=== PATIENT | female | born 1990 | race Caucasian/White ===

== ENCOUNTER 2024-11-28 03:10 | Emergency (ER) | payer MEDICAID, SELFPAY ==
[2024-11-28 03:18] VITALS: BP 137/90; PULSE 91; RESP 18; TEMP 36.6; O2SAT 96; BMI 18.4
[2024-11-28 03:36] LABS: MANUAL DIFF FLAG NO
[2024-11-28 03:37] LABS: Hematocrit 43.0 % (37.0-47.0); Hemoglobin 14.6 g/dl (12.0-16.0); Imm Gran Abs Auto 0.02 X10*3/uL (0.00-0.03); Imm Gran Pct Auto 0.2 % (0.0-0.4); Lymphocytes Absolute Auto 3.1 X10*3/uL (1.2-4.9); Mean Corpuscular HGB Conc 34.0 g/dl (31.0-35.0); Mean Corpuscular Hemoglobin 32.0 pg (27.0-33.0); Mean Corpuscular Volume 94.3 fL (80.0-98.0); NRBC Abs Auto 0.000 X10*3/uL (0.0-0.012); NRBC Pct Auto 0.0 /100WBC (0.0-0.2); Platelet Count 251 X10*3/uL (160-400); Red Blood Count 4.56 X10*6/uL (4.20-5.50); White Blood Count 8.7 X10*3/uL (4.8-10.8)
[2024-11-28 03:38] LABS: Appearance Urine Clear; Glucose Urine UA Negative (Negative); PH 6.5 (5.0-9.0); Specific Gravity - Urine 1.015 (1.005-1.025); UMIC TRIGGER UACC YES
[2024-11-28 03:40] LABS: UACC Culture Trigger YES
[2024-11-28 03:58] LABS: Alanine Aminotransferase 14 U/L (0-31); Albumin Level 4.4 g/dL (3.5-5.0); Alkaline Phosphatase 58 U/L (39-117); Anion Gap 15 (12-20); Aspartate Amino Transferase 27 U/L (5-31); Blood Urea Nitrogen 7 mg/dL (9-16); Calcium 9.0 mg/dL (8.4-10.2); Carbon Dioxide 20 mmol/L (22-29); Chloride 114 mmol/L (96-108); Creatinine Clr Calc Pharmacy 103.6; Estimated Glomerular Filt Rate > 60; Potassium 4.0 mmol/L (3.3-5.1); Sodium 145 mmol/L (135-145); Total Protein 7.3 g/dL (6.5-8.0)
--- NOTE | 2024-11-28 04:27 | ED.MEDCLEAR ---
HPI - Medical Clearance General Chief complaint: Medical Clearance Stated complaint: detox Time Seen by Provider: 11/28/24 04:20 Source: patient Limitations: no limitations History of Present Illness ED Provider: Abbey Castro PA-C HPI Narrative: 34-year-old female with a history of substance use presents requesting medical clearance. Patient states she has a detox bed at [facility], she requires medical clearance here in the ER. Related Information Allergies Allergy/AdvReac Type Severity Reaction Status Date / Time codeine Allergy Hives Verified 11/28/24 03:20 shellfish derived (shellfish) Allergy Anaphylaxis Verified 11/28/24 03:20 vancomycin Allergy Hives Verified 11/28/24 03:20 clindamycin AdvReac Diarrhea Verified 11/28/24 03:20 Review of Systems Review of Systems: Yes all other systems are reviewed and are negative Constitutional: Constitutional: Denies fatigue and Denies fever(s) Cardiovascular: Cardiovascular: Denies chest pain Gastrointestinal: Gastrointestinal: Denies abdominal pain Musculoskeletal: Musculoskeletal: Denies back pain Endocrine: Endocrine: Denies fatigue PMF Past Medical History Attestation statement: The following information was validated with the patient. Social History Social History Advance Directives: No Physical Exam Vital Signs: Vital Signs: Last Vital Signs Temp 97.8 F 11/28/24 04:46 Pulse 91 11/28/24 04:46 Resp 18 11/28/24 04:46 BP 137/90 H 11/28/24 04:46 Pulse Ox 96 11/28/24 04:46 O2 Del Method Room Air 11/28/24 04:46 BMI result Body Mass Index 18.4 Const: Other: Alert, appears older than stated age Orientation/consciousness: patient oriented x3 Resp: Effort & Inspection: normal respiratory effort Cardio: Other: Normal peripheral perfusion Skin: Other: Warm dry no rash Neuro: General: patient oriented x3, gait normal, no focal motor deficits and CN's II-XI intact bilaterally Psych: Other: Cooperative Medical Decision Making Medical Decision Making MDM Narrative: 34-year-old female with a history of substance use presents requesting medical clearance. Patient states she has a detox bed at [facility], she requires medical clearance here in the ER. Problem: Substance abuse History: Per patient I have considered the following differential diagnoses: SI, HI, decompensated psychiatric illness, drug/alcohol intoxication, medical clearance Plan: Patient is here for medical clearance, screening labs were obtained, she has a sober ride that we will be taken to her to detox once she is discharged from the ER. She is simply requires her discharge paperwork stating that she is medically cleared. I have independently reviewed the following tests: Labs: No leukocytosis, not anemic, urine not infected Lab Data 11/28/24 03:30 11/28/24 03:30 Labs: Lab Results 11/28/24 Range/Units 03:30 WBC 8.7 (4.8-10.8) X10*3/uL RBC 4.56 (4.20-5.50) X10*6/uL Hgb 14.6 (12.0-16.0) g/dl Hct 43.0 (37.0-47.0) % MCV 94.3 (80.0-98.0) fL MCH 32.0 (27.0-33.0) pg MCHC 34.0 (31.0-35.0) g/dl RDW 13.2 (11.0-16.0) % Plt Count 251 (160-400) X10*3/uL MPV 10.4 (9.4-12.3) fL Immature Gran % (Auto) 0.2 (0.0-0.4) % Neut % (Auto) 50.2 (45-73) % Lymph % (Auto) 36.0 (20-40) % Moody % (Auto) 10.5 (2-11) % Eos % (Auto) 2.4 (0-4) % Baso % (Auto) 0.7 (0-2) % Lymph # (Auto) 3.1 (1.2-4.9) X10*3/uL Moody # (Auto) 0.9 (0.1-1.2) X10*3/uL Eos # (Auto) 0.2 (0.0-0.4) X10*3/uL Baso # (Auto) 0.1 (0.0-0.2) X10*3/uL Abs Immat Gran (auto) 0.02 (0.00-0.03) X10*3/uL Absolute Neuts (auto) 4.3 (2.0-8.3) x10*3/uL Absolute Nucleated RBC 0.000 (0.0-0.012) X10*3/uL Nucleated RBC % (auto) 0.0 (0.0-0.2) /100WBC Sodium 145 (135-145) mmol/L Potassium 4.0 (3.3-5.1) mmol/L Chloride 114 H (96-108) mmol/L Carbon Dioxide 20 L (22-29) mmol/L Anion Gap 15 (12-20) BUN 7 L (9-16) mg/dL Creatinine 0.60 (0.5-1.4) mg/dL Estim Creat Clear Calc 103.6 Estimated GFR > 60 Random Glucose 67 (60-115) mg/dL Calcium 9.0 (8.4-10.2) mg/dL Total Bilirubin 0.1 (0.0-1.0) mg/dL AST 27 (5-31) U/L ALT 14 (0-31) U/L Alkaline Phosphatase 58 (39-117) U/L Total Protein 7.3 (6.5-8.0) g/dL Albumin 4.4 (3.5-5.0) g/dL Urine Color Yellow Urine Appearance Clear Urine pH 6.5 (5.0-9.0) Ur Specific Noble 1.015 (1.005-1.025) Urine Protein 30 (1+) H (Neg-Trace) mg/dL Urine Glucose (UA) Negative (Negative) mg/dL Urine Ketones Negative (Negative) mg/dL Urine Blood Negative (Negative) Urine Nitrite Negative (Negative) Ur Leukocyte Esterase Moderate (2+) H (Negative) Urine RBC 0-2 (0-2) /HPF Urine WBC 6-10 H (0-5) /HPF Ur Squamous Epith Cells 0-2 (0-2) /HPF Urine Bacteria None Seen (None Seen) Hyaline Casts 0-2 (0-2) /LPF Discharge Plan Discharge Clinical Impression: Encounter for medical screening examination Patient Disposition: Home, Self-Care Additional Instructions: There were no acute lab abnormalities, the patient's vitals are stable, she is appropriate to be transferred to the detox bed at [facility] Interventions: ED Discharge Assessment Last Done: 11/28/24 04:46 Discharge Date/Time: 11/28/24 04:47 Print Language: Italian
--- OUTSIDE RECORDS SUMMARY | 2024-11-28 04:39 | XMS_ITS | Clinical Summary ---
Author Organization [facility] Address [address] [employer] [address] [address] Phone Care Team Providers Care Fern Gatherer Name Role Phone Pcp, Unknown Primary Care Provider Unavailabl e Allergies Active Allergy Reactions Criticality Noted Date Comments Codeine Hives Low 02/12/2018 Vancomycin Hives Low 02/12/2018 Reaction was to IV form Medications lithium carbonate 300 mg tablet Take 900 mg by mouth nightly. Active gabapentin (NEURONTIN) 300 MG capsule Take 300 mg by mouth daily with dinner. Active gabapentin (NEURONTIN) 300 MG capsule Take 600 mg by mouth nightly. Active dextroamphetamine -amphetamine (ADDERALL) 15 mg Tab tablet Take 15 mg by mouth 2 (two) times a day. Active therapeutic multivitamin tablet Take 1 tablet by mouth daily. Active fluvoxaMINE (LUVOX) 100 MG tablet Take 100 mg by mouth 2 (two) times a day. Active cyclobenzaprine (FLEXERIL) 10 MG tabletIndications :Post viral syndrome Take 1 tablet (10 mg total) by mouth nightly at bedtime. 30 tablet 11 9 Active metaxalone (SKELAXIN) 800 MG tablet Take 800 mg by mouth 3 (three) times a day. Active nicotine (NICODERM CQ) 21 mg/[address] 1 patch onto the skin daily. 30 patch 5 9 Active Active Problems Problem Noted Date Diagnosed Date Attention deficit hyperactivity disorder (ADHD) 02/26/2019 Overview (02/26/2019): Follows with psych Mixed obsessional thoughts and acts 02/26/2019 Overview (02/26/2019): OCD- follows with psych Assessment & Plan (02/26/2019 2:08 PM EST): Is going to continue calling around for a new psychiatrist. Her diagnostic uncertainty and polypharmacy place her outside my scope of comfort for psychiatric prescription. 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 02/12/2018 Chronic fatigue 02/12/2018 Acne 02/12/2018 Family History Medical History Relation Comments No Known Problems Daughter Bipolar disorder Father Heart attack Father Peripheral Arterial Disease Father with claudication Premature CHD Father Hypertension Mother Migraines Mother No Known Problems Sister Allergies Son Other Son petechiae- no kn own cause Breast cancer Neg Hx Colon cancer Neg Hx Hypothyroidism Neg Hx Pancreatic cancer Neg Hx Relation Status Comments Daughter Alive Father Alive Mother Alive Sister Alive Son Alive Social History Tobacco Use Types Packs/Day Years Used Date Smoking Tobacco: Former Cigarettes 1 10 0 08/10/2001 - 2011 Smokeless Tobacco: Current Tobacco Cessation:Ready to Q uit: No; Counseling Given: Yes Comments:Using e-cigarettes Alcohol Use Standard Drinks/Week Comments Yes 0 (1 standard drink = 0.6 oz pur e alcohol) Education Answer Date Recorded Are you interested in more education? Not on lisa e 07/07/2022 Are you concerned about learning? Not on file 07/07/2022 No 07/07/2022 No 07/07/2022 Digital Access Answer Date Recorded No 08/07/2022 No 08/07/2022 No 08/07/2022 Reliable internet access at home? Not on file 08/07/2022 Device with a working camera? Not on file Comments No Sex and Gender Information Value Date Recorded Sex Assigned at Female 02/26/2019 11:26 AM EST Legal Sex Female 9:04 PM EDT Gender Identity Female 02/26/2019 11:26 AM EST Sexual Orientation Straight 02/26/2019 11 :26 AM EST Last Filed Vital Signs Vital Sign Reading Time Taken Comments Blood Pressure 122/64 02/26/2019 11:01 AM EST Pulse 102 02/26/2019 11:01 AM EST Temperature 36.8 C (98.3 F) 02/26/2019 11:01 AM EST Respiratory Rate - - Oxygen Saturation 99% 02/26/2019 11: 01 AM EST Inhaled Oxygen Concentration - - Weight 49.8 kg (109 lb 12.8 oz) 019 11:01 AM EST Height 165.3 cm (5' 5.06 ) 02/26/2019 1 1:01 AM EST Body Mass Index 18.24 02/26/2019 11:01 AM EST Plan of Treatment Health Maintenance Due Date Last Done Comments CREATININE LEVEL 1989 LITHIUM LEVEL 1989 TSH LEVEL 1989 SMOKING Hx and SMOKELESS TOBACCO SCREENING 2002 HEPATITIS C SCREENING 07/12/2007 HIV ONE-TIME SCREENING (18-6 5 YEARS) 07/12/2007 PAP SMEAR 2010 DEPRESSION SCREENING 02/25/2020 02/24/2019 INFLUENZA VACCINE (#1) 2024 COVID-19 VACCINE (2023-2 5 season) 2024 Adult Td,Tdap Booster 07/15/2031 07/14/2021 , 04/04/2016, 11/10/2000 HIB VACCINES Completed 10/11/1990, 04/23/1990, 02/08/1990 HEPATITIS A VACCINES Aged Out No long er eligible based on patient's age to complete this topic MENINGOCOCCAL VACCINES (ACWY) Aged Out No longer eligible based on patient's age to complete this topic MENINGOCOCCAL VACCINES (B) Aged Out N o longer eligible based on patient's age to complete this topic PNEUMOCOCCAL VACCINES (0-49 years) Aged Out No longer eligible b ased on patient's age to complete this topic Medical Devices Not on file Insurance [place] [address] [place] [address] PPO EPO [facility] [place]PO [place] [address] [place] [address] [place] [place] [address] PPO EPO PPO EPO PPO EPO PPO EPO PPO EPO Care Teams Fern Gatherer Relationship Specialty Start Date End Date Pcp, Unknown PCP - General 07/17/22 Additional Source Comments The information contained in this document represents components of the legal health record. It is not the complete legal health record.[facility]
--- OUTSIDE RECORDS SUMMARY | 2024-11-28 04:39 | XMS_ITS | Clinical Summary ---
Author Organization [facility] Address [address] [place] [address] Care Team Providers Care Fagoting Machine Operator Name Role Phone Kathy Rosa Maria LAMAR-Jac Primary Care Provider [phone] Source Comments PLEASE NOTE, if this patient is a minor, it may be UNLAWFUL to discuss sensitive information that is contained in these records (such as FAMILY PLANNING, MENTAL HEALTH or SUBSTANCE ABUSE) with the minor patient's parent or other person without the patient's specific authorization.[facility] Allergies Active Allergy Reactions Criticality Noted Date Comments Codeine 08/18/2022 Shellfish Containing Products 2022 Vancomycin 08/18/2022 Medications fluoride, sodium, 1.1 % creaIndications: Caries of dentin Place in mouth once daily 51 g 3 08/31/19 23 Active dicyclomine (BENTYL) 20 mg tabletIndication s:Uses control Take 1 Tablet by mouth 3 (three) times daily as needed for other reason (pain) 30 Tablet 11/22/19 23 Active ibuprofen 600 mg tabletIndication s:Mild intermittent asthma without complication ([facility]) Take 1 Tablet by mouth 3 (three) times daily as needed for pain 28 Tablet 11/22/19 23 Active pyridoxine, vitamin B6, 100 mg tabletIndication s:PMDD (premenstrual dysphoric disorder) Take 1 Tablet by mouth once daily for 90 days 30 Tablet 2 03/23/19 24 Active calcium (OS-VINCENT) 500 mg calcium (1,250 mg) tabletIndication s:PMDD (premenstrual dysphoric disorder) Take 1 Tablet by mouth once daily for 90 days 30 Tablet 2 03/23/19 24 Active hydrOXYzine HCL (ATARAX) 25 mg tabletIndication s:Attention deficit hyperactivity disorder (ADHD), unspecified ADHD type,Obsessive-c ompulsive disorder, unspecified type Take 1 Tablet by mouth once daily as needed for anxiety 90 Tablet 12/31/19 24 Active albuterol HFA 90 mcg/actuation inhalerIndicatio ns:Mild intermittent asthma without complication (HHS-HCC) Inhale 2 Puffs into the lungs every 4 (four) hours as needed for shortness of breath 18 g 1 02/19/20 24 Active budesonide-formo teroL (SYMBICORT) 80-4.5 mcg/actuation inhalerIndicatio ns:Mild persistent asthma with acute exacerbation (HHS-HCC) Inhale 2 Puffs into the lungs 2 (two) times daily 30.6 g 02/19/20 24 Active norethindrone, contraceptive, (INCASSIA) 0.35 mg tabletIndication s:Uses control Take 1 Tablet by mouth once daily 84 Tablet 2 04/22/19 25 Active gabapentin (NEURONTIN) 600 mg tabletIndication s:PMDD (premenstrual dysphoric disorder),Obsess tacho-compulsive disorder, unspecified type Take 2 Tablets by mouth nightly at bedtime for 180 days 60 Tablet 5 05/20/19 25 Active ARIPiprazole (ABILIFY) 2 mg tabletIndication s:PMDD (premenstrual dysphoric disorder) Take 1 Tablet by mouth once daily for 90 days. 30 Tablet 2 08/07/19 25 Active fluvoxaMINE (LUVOX) 100 mg tabletIndication s:Obsessive-comp ulsive disorder, unspecified type Take 1 Tablet by mouth 3 (three) times daily for 90 days. 90 Tablet 2 08/07/19 25 Active propranoloL (INDERAL) 10 mg tabletIndication s:PMDD (premenstrual dysphoric disorder) Take 1 Tablet by mouth 3 (three) times daily for 90 days. 90 Tablet 2 08/07/19 25 Active lisdexamfetamine (VYVANSE) 50 mg capsuleIndicatio ns:Attention deficit hyperactivity disorder (ADHD), unspecified ADHD type Take 1 Capsule by mouth every morning for 30 days. Max Daily Amount: 50 mg 30 Capsule 11/05/19 25 025 Active nicotine polacrilex (COMMIT) 4 mg lozengeIndicatio ns:Tobacco use USE ONE BY MOUTH EVERY 2 HOURS NEEDED FOR SMOKING CESSATION. 432 Lozenge 1 11/12/19 25 Active lisdexamfetamine 10 mg capIndications:A ttention deficit hyperactivity disorder (ADHD), unspecified ADHD type Take 1 Capsule by mouth daily Take one capsule Vyvanse 10mg by mouth daily for 7 days prior to menstrual phase, in addition to the regular dose of vyvanse 50mg.. Max Daily Amount: 1 Capsule 7 Capsule 11/22/19 25 Active nicotine polacrilex (COMMIT) 4 mg lozengeIndicatio ns:Tobacco use Use one by mouth every 2 hours as needed for smoking cessation. 432 Lozenge 1 08/26/19 25 025 Discontinued lisdexamfetamine 10 mg capIndications:A ttention deficit hyperactivity disorder (ADHD), unspecified ADHD type Take 1 Capsule by mouth daily Take one capsule Vyvanse 10mg by mouth daily for 7 days prior to menstrual phase, in addition to the regular dose of vyvanse 50mg.. Max Daily Amount: 1 Capsule 7 Capsule 10/23/19 25 025 Discontinued(R eorder (E-Cancel Not Sent)) Active Problems Problem Noted Date Diagnosed Date Pre-operative exam 07/08/2023 Assessment & Plan (07/08/2023 9:47 AM EDT): - Preop Diagnosis: Chronic pelvic pain, endometriosis - Planned procedure: Diagnostic laparoscopy, lysis of adhesions, excision of endo - (x) Surgical Consent signed - (x) Booking request submitted - (p) Pre-op orders - Preop ABX: consider ancef and flagyl - Sx Prophylaxis: SCDs - NPO 12 hours prior to surgery - Post-op appt pending surgery date - Surgical scrubs given today - Pre-op surgical packet - Post Operative Considerations: - Hospitalization: 0 night; daystay - Discussed pain management: Tylenol/Ibuprofen scheduled q 6hours and _oxycodone q3-4h prn - Discussed bowel regimen with Miralax and docusate - Discussed lifting restrictions <10 lbs for: 6 weeks - Discussed bathing restriction (no tub baths, showers OK) until clear by doctor - Discussed return to normal activities in: 4-6 weeks - Discussed postoperative appointment in: 2 weeks - Discussed vaginal rest for: 2 weeks - Discussed driving restrictions All questions answered. Primary insomnia 02/07/2023 ADHD 08/18/2022 08/18/2022 Alcohol use disorder 08/18/2022 08/18/2022 Asthma (HHS-HCC) 08/18/2022 08/18/2022 PTSD (post-traumatic stress disorder) 08/18/2022 08/18/2022 Endometriosis 08/18/2022 08/18/2022 Assessment & Plan (07/08/2023 9:47 AM EDT): -Proceed with surgical management PMDD (premenstrual dysphoric disorder) Obsessive-compulsive disorder 08/18/2022 Encounters Date Type Department Care Team Description 11/12/2024 [facility] [address] [place] [address] Rosa Maria Chavez FNP-C from Last 3 Months Family History Medical History Relation Name Comments cardiac arrest Father Endometriosis Maternal Grandmother Endometriosis Mother Relation Name Status Comments Father Maternal Grandmother Mother Social History Tobacco Use Types Packs/Day Years Used Date Smoking Tobacco: Former Cigarettes Smokeless Tobacco: Current Chew Tobacco Cessation:Ready to Q uit: Not Asked; Counseling Given: Not Answered Comments:Lo Alcohol Use Standard Drinks/Week Comments Not Currently 0 (1 standard drink = 0.6 oz pur e alcohol) last use was in July Social Connections Answer Date Recorded Connectedness 0 11/19/2023 Financial Resource Strain Answer Date R ecorded Financial Resource Strain 0 2022 Stress Answer Date Recorded Stress 0 08/18/2022 Physical Activity Answer Date Recorded Physical Activity 0 08/18/2022 Food Insecurity Answer Date Recorded Food 0 12/06/2023 Transportation Needs Answer Date Record ed Transportation 0 08/18/2022 Housing Stability Answer Date Recorded Housing 0 08/18/2022 Safety and Environment Answer Date Rene rded Safety 0 08/18/2022 Utilities Answer Date Recorded Utilities 0 08/18/2022 Employment Answer Date Recorded Employment 0 08/18/2022 Comments No Sex and Gender Information Value Date Recorded Sex Assigned at Female 08/18/2022 10:53 AM PDT Legal Sex Female 8:49 AM PDT Gender Identity Female 08/18/2022 10:53 AM PDT Sexual Orientation Straight 08/18/2022 10 :53 AM PDT Last Filed Vital Signs Vital Sign Reading Time Taken Comments Blood Pressure 120/91 01/16/2024 3:18 PM EST Pulse 82 01/16/2024 3:18 PM EST Temperature 36.9 C (98.5 F) 05/24/2023 3:59 PM EDT Respiratory Rate 16 07/19/2023 10:0 2 AM EDT Oxygen Saturation 98% 07/19/2023 10: 02 AM EDT Inhaled Oxygen Concentration - - Weight 58.9 kg (129 lb 14.4 oz) 024 10:02 AM EDT Height 167.6 cm (5' 6 ) 07/19/2023 10:0 2 AM EDT Body Mass Index 20.97 07/19/2023 10:02 AM EDT Plan of Treatment Health Maintenance Due Date Last Done Comments Imm-Pneumococcal (1 of 2 - PCV) 2008 Imm-HPV (1 - 3-dose SCDM series) 2016 Depression Monitoring 11/18/2022 08/18/2022 Relationship Safety Screening/Counseling 08/19/2023 08/18/2022 Anxiety Screening 10/27/2023 10/26/2022 Dental BW 10/29/2023 10/26/2022 Dental Examination 10/29/2023 10/26/2022 Dental Perio Charting 10/30/2023 10/27/2022 Dental Prophy 10/30/2023 10/27/2022 Annual Wellness (Adult): Indicated (All Coverage) 03/09/2024 03/09/2023, 08/18/2022 Alcohol and Drug Screen 03/12/2024 08/18/2022 [id number] ( season) 2024 Imm-Influenza (#1) 2024 Hypertension Screening (#1) 01/15/2025 Diabetes Screening 08/18/2025 08/18/2022, 08/18/2022 Tobacco Cessation Counseling (#1) 11/11/2025 023, 08/18/2022 Tobacco Screening 11/11/2025 11/11/2024, , 08/18/2022 Pap Smear 03/09/2026 03/09/2023 Dental FMX/Pano 10/29/2027 10/26/2022 Cervical Cancer Screening 03/09/2028 HPV Screening 03/09/2028 03/09/2023 Pap + HPV 03/09/2028 03/09/2023 Imm-DTaP/Tdap/Td (9 - Td or Tdap) 07/15/2031 07/14/2021, 04/04/2016, 12/27/2011, Additional history exists Imm-Hepatitis B Completed 07/15/2001, 01/21/2001 HIV Screening Completed 08/18/2022 Hepatitis C Screening Completed 08/18/2022 HPV Genotyping Discontinued 03/09/2023 Cervical Ablation/Cold-Knife Conization Discontinued Cervical Cryotherapy Discontinued Colposcopy Discontinued Endometrial Biopsy Discontinued Excision/Leep Discontinued Vaginal Pap Discontinued Vulvoscopy Discontinued Procedures Procedure Name Priority Date/Time Associated Diagnosis Comments HPV JESUS 16/18 + 45 Routine 03/09/2023 2 :13 PM EST THIN PREP IMAGE PAP + HPV RNA E6/E7 W/RFLX HPV 16, 18/45 Routine 03/09/2023 2:13 PM EST Endometriosis Full PROPHYLAXIS - ADULT Routine 10/27/2022 9:40 AM EDT Encounter for dental examination Full INTRAORAL - COMP SERIES OF RADIOGRAPHIC IMAGES Routine 10/26/2022 11:00 AM EDT Caries Toothache Tooth infection Full COMP ORAL EVALUATION - NEW/ESTABLISHED PATIENT Routine 10/26/2022 11:00 AM EDT Caries HIV 1/2 AG & AB W/RFLX (4TH GEN) Routine 08/18/2022 1:35 PM EDT Routine general medical examination at a health care facility HEPATITIS C AB W/RFLX HCV RNA, QT, RT PCR Routine 08/18/2022 1:35 PM EDT Routine general medical examination at a health care facility COMPREHENSIVE METABOLIC PANEL Routine 08/18/2022 1:35 PM EDT Routine general medical examination at a health care facility from Last 3 Months or Most Recently Relevant to Health Maintenance Results * HPV JESUS 16/18 + 45 (03/09/2023 2:13 PM EST) HPV 16 RNA NOT DETECTED NOT DETECTED [facility] HPV 18/45 RNA NOT DETECTED NOT DETECTED [facility] Comment: Methodology: Scratch Finisher Mediated Amplification Cervical sources are required for HPV testing. If a vaginal source from a patient who has had a total hysterectomy with removal of cervix was submitted, please contact the testing laboratory for alternative testing options. 03/09/2023 2:13 PM EST 03/10/2023 5:12 AM EST Randall Jackson MD LAB - PATHOLOGY AND CYTOLOGY AM BULATORY Final Result [email or web address] [address] [place] [id number], [facility] [address] [place] [phone] * (ABNORMAL) THIN PREP IMAGE PAP + HPV RNA E6/E7 W/RFLX HPV 16, 18/45 (03/09/2023 2:13 PM EST) CLINICAL INFORMATION See Note [facility] Comment:Normal exam LMP See Note [facility] Comment:[id number] PREV. PAP See Note [facility] Comment:NONE GIVEN PREV. BX See Note [facility] Comment:NONE GIVEN SOURCE See Note [facility] Comment:Cervix STATEMENT OF ADEQUACY See Note [facility] Comment: Satisfactory for evaluation. Endocervical/transformation zone component present. INTERPRETATION/RESU LT See Note [facility] Comment: Cytology Results: Negative for intraepithelial lesion or malignancy. INFECTION See Note [facility] Comment: Shift in vaginal ajay suggestive of bacterial vaginosis. COMMENT See Note [facility] Comment: This Pap test has been evaluated with computer assisted technology. BOOK BINDER See Note [facility] Comment: KR, CT(ASCP) CT screening location: [address] [address] REVIEW BOOK BINDER See Note [facility] Comment: MCNAIR, CT(ASCP) CT screening location: [address] [address] COMMENT [facility] HPV MRNA E6/E7 Detected (A) Not Detected [facility] Comment: Methodology: Scratch Finisher-Mediated Amplification This assay detects E6/E7 viral messenger RNA (mRNA) from 14 high-risk HPV types (16,18,31,33,35,39,45,51,52,56,58,59,66,68). Cervical sources are required for HPV testing. If a vaginal source from a patient who has had a total hysterectomy with removal of cervix was submitted, please contact the testing laboratory for alternative testing options. For additional information, please refer to http://education.Wakozi/faq/LDU662m8 (This link if provided for information/ educational purposes only.) Swab Cervix uteri structure / Unknown 03/09/2023 2:13 PM EST 03/10/2023 5:12 AM EST Narrative [email or web address] - 03/16/2023 9:00 AM EST EXPLANATORY NOTE: The Pap is a screening test for cervical cancer. It is not a diagnostic test and is subject to false negative and false positive results. It is most reliable when a satisfactory sample, regularly obtained, is submitted with relevant clinical findings and history, and when the Pap result is evaluated along with historic and current clinical information. Randall Jackson MD LAB - PATHOLOGY AND CYTOLOGY AM BULATORY Final Result [email or web address] [address] [place] [id number], [facility] [address] [phone] * Hep C Antibody with Reflex HCV RNA (08/18/2022 1:35 PM EDT) HEPATITIS C ANTIBODY NON-REACT TACHO NON-REACT TACHO Hydrocapsule [facility] SIGNAL TO CUT-OFF 0.04 <1.00 [facility] Comment: HCV antibody was non-reactive. There is no laboratory evidence of HCV infection. In most cases, no further action is required. However, if recent HCV exposure is suspected, a test for HCV RNA (test code 95564) is suggested. For additional information please refer to http://Lagiar.Wakozi/faq/FTM06u4 (This link is being provided for informational/ educational purposes only.) Blood Blood / Unknown 08/18/2022 1 :35 PM EDT 08/18/2022 1:35 PM EDT Rosa Maria Chavez MUTUEL DEPARTMENT MANAGER-C LAB - BLOOD DRAW Edited R esult - Final Performing Organization Address [facility] Co de Phone Number [facility] [address] [address], [facility] [address] [address] * HIV 1/2 AG & AB W/RFLX (4TH GEN) (08/18/2022 1:35 PM EDT) [facility] HIV AG/AB, 4TH GEN NON-REAC TIVE NON-REAC TIVE [facility] Comment: HIV-1 antigen and HIV-1/HIV-2 antibodies were not detected. There is no laboratory evidence of HIV infection. PLEASE NOTE: This information has been disclosed to you from records whose confidentiality may be protected by state law. If your state requires such protection, then the state law prohibits you from making any further disclosure of the information without the specific written consent of the person to whom it pertains, or as otherwise permitted by law. A general authorization for the release of medical or other information is NOT sufficient for this purpose. For additional information please refer to http://Lagiar.[facility].Vingle/faq/MBB146 (This link is being provided for informational/ educational purposes only.) The performance of this assay has not been clinically validated in patients less than 2 years old. Blood Blood / Unknown 08/18/2022 1 :35 PM EDT 08/18/2022 1:35 PM EDT us Royalhakanwilliam SherwoodKathy MUTUEL DEPARTMENT MANAGER-C LAB - BLOOD DRAW Final Re sult Performing Organization Address [facility]/ZIP Co de Phone Number [facility] [address] [address], [facility] [address] [place] [address] * (ABNORMAL) COMPRE METAB PANEL (08/18/2022 1:35 PM EDT) GLUCOSE 88 65 - 99 mg/dL [facility] Comment: Fasting reference interval UREA NITROGEN (BUN) 16 7 - 25 mg/dL [facility] CREATININE (blood) 0.73 0.50 - 0.97 mg/dL [facility] EGFR 111 > OR = 60 mL/min/1 .73m2 [facility] Comment: The eGFR is based on the CKD-EPI 2020 equation. To calculate the new eGFR from a previous Creatinine or Cystatin C result, go to https://www.kidney.org/professionals/ kdoqi/gfr%5Fcalculator BUN/CREATININE RATIO NOT APPLICABLE 6 [facility] SODIUM 136 135 - 146 mmol/L [facility] POTASSIUM 4.8 3.5 - 5.3 mmol/L [facility] CHLORIDE 105 98 - 110 mmol/L [facility] CARBON DIOXIDE 25 20 - 32 mmol/L [facility] CALCIUM 9.1 8.6 - 10.2 mg/dL [facility] PROTEIN, TOTAL 6.7 6.1 - 8.1 g/dL [facility] ALBUMIN 4.5 3.6 - 5.1 g/dL [facility] GLOBULIN 2.2 1.9 - 3.7 g/dL (calc) [facility] ALBUMIN/GLOBUL IN RATIO 2.0 1.0 - 2.5 (calc) [facility] BILIRUBIN, TOTAL 0.5 0.2 - 1.2 mg/dL [facility] ALKALINE PHOSPHATASE 56 31 - 125 U/L [facility] AST 40(H) 10 - 30 U/L [facility] ALT 44(H) 6 - 29 U/L [facility] Blood Blood / Unknown 08/18/2022 1 :35 PM EDT 08/18/2022 1:35 PM EDT us Rosa Maria Chavez MUTUEL DEPARTMENT MANAGER-C LAB - BLOOD DRAW Edited R esult - Final [facility] [address] [address], [facility] [address] [phone] from Last 3 Months or Most Recently Relevant to Health Maintenance Insurance [place] MEDICA[place] D[place] [facility] [employer] [address] [employer]CO Care Teams Fagoting Machine Operator Relationship Specialty Start Date End Date Rosa Maria Chavez FNP-C [address] [place] [address] PCP - General Internal Medicine 06/23/22
--- OUTSIDE RECORDS SUMMARY | 2024-11-28 04:39 | XMS_ITS | Clinical Summary ---
Author Organization [facility] Address [address] [place] [address] Care Team Providers Care Dock Manager Name Role Phone Unavailable Primary Care Provider Unavailabl e Encounters Date Type Department Care Team Description 09/30/2024 Population Health Risk Score [facility] (C3) Department [address] [address] Provider, Population Health Generic from Last 3 Months Social History Tobacco Use Types Packs/Day Years Used Date Smoking Tobacco: Never Assessed Comments Unknown Sex and Gender Information Value Date Recorded Sex Assigned at Not on file Legal Sex Female 9:21 PM EDT Gender Identity Not on file Sexual Orientation Not on file Plan of Treatment Health Maintenance Due Date Last Done Comments Depression Screening 1989 SDOH Screening 1989 Disability Screening 1989 Alcohol/Substance Use Screening 2001 Tobacco Screening 2001 Family Planning (PISQ) 2004 HPV Vaccines (1 - 3-dose series) 2004 Hepatitis C Screening 07/12/2007 DTaP/Tdap/Td Vaccines (1 - Tdap) 2008 Hepatitis B Vaccines (1 of 3 - 19+ 3-dose series) 2008 Pneumococcal Vaccine: Pediatrics (0 to 5 Years) and At-Risk Patients (6 to 49) Years (1 of 2 - PCV) 2008 Pap Smear 2010 Cervical Cancer Screening 07/12/2019 HPV/Cotest 07/12/2019 COVID-19 Vaccine ( - 2023-2 5 season) 2024 Influenza Vaccine (#1) 2024 Zoster Vaccines (1 of 2) 07/12/2039 RSV Patients and Patients Aged 60 years or older (1 - 1-dose 75+ series) 2064 HIV Screening Completed 08/18/2022, 08/18/2022 HIB Vaccines Aged Out No longer eligi ble based on patient's age to complete this topic Hepatitis A Vaccines Aged Out No long er eligible based on patient's age to complete this topic IPV Vaccines Aged Out No longer eligi ble based on patient's age to complete this topic Meningococcal B Vaccine Aged Out No l onger eligible based on patient's age to complete this topic Meningococcal Vaccine Aged Out No lynda manas eligible based on patient's age to complete this topic RSV under 20 months Aged Out No longe r eligible based on patient's age to complete this topic Rotavirus Vaccines Aged Out No longer eligible based on patient's age to complete this topic
--- OUTSIDE RECORDS SUMMARY | 2024-11-28 04:39 | XMS_ITS | Clinical Summary ---
Author Organization [facility] Address [address] [place] [address] Care Team Providers Care Corn Cutter Name Role Phone Unavailable Primary Care Provider Unavailabl e Medications No known medications Social History Tobacco Use Types Packs/Day Years Used Date Smoking Tobacco: Never Assessed Sex and Gender Information Value Date Recorded Sex Assigned at Female 06/15/2021 8:19 PM EDT Gender Identity Not on file Sexual Orientation Not on file Job Start Date Occupation Industry Not on file Not on file Not on file Last Filed Vital Signs Vital Sign Reading Time Taken Comments Blood Pressure 146/102 06/15/2021 7:07 PM EDT Pulse 108 06/15/2021 7:07 PM EDT Temperature 37.2 C (98.9 F) 06/15/2021 7:07 PM EDT Respiratory Rate 24 06/15/2021 7:07 PM EDT Oxygen Saturation 98% 06/15/2021 7:07 PM EDT Inhaled Oxygen Concentration - - Weight - - Height - - Body Mass Index - - Plan of Treatment Health Maintenance Due Date Last Done Comments Hepatitis B Vaccines (1 of 3 - 3-dose series) 1989 Hepatitis C Screening 1989 COVID-19 Vaccine (#1) 01/11/1990 Depression Screening 2001 Preventative Health Evaluation 07/12/2007 DTap / Tdap / Td (1 - Tdap) 2008 Cervical Cancer Screening (P ap Smear) 2010 Influenza Vaccine (#1) 2024 Pneumococcal Vaccine Aged Out No long er eligible based on patient's age to complete this topic RSV Ped < 20 months Aged Out No longe r eligible based on patient's age to complete this topic
--- OUTSIDE RECORDS SUMMARY | 2024-11-28 04:39 | XMS_ITS | Clinical Summary ---
Author Organization [facility] Address [address] [place] [address] Care Team Providers Care Tare Weigher Name Role Phone Unavailable Primary Care Provider Unavailabl e Allergies Active Allergy Reactions Criticality Noted Date Comments Codeine Unknown/Patient and Family Unable to Define Medium 10/14/2019 Vancomycin Hives Medium 10/14/2019 Medications albuterol (PROVENTIL HFA; VENTOLIN HFA) 108 (90 Base) MCG/ACT inhaler INHALE 2 PUFFS BY MOUTH EVERY 4 HOURS NEEDED FOR WHEEZE 08/19/2019 Active amphetamine-dext roamphetamine (ADDERALL) 15 MG tablet Take 15 mg by mouth. Active gabapentin (NEURONTIN) 300 MG capsule Take 600 mg by mouth. Active fluvoxaMINE (LUVOX) 100 MG tablet Take 100 mg by mouth 2 (two) times a day. 09/03/2019 Active lithium carbonate 300 MG IR tablet Take 900 mg by mouth. Active nicotine (NICODERM CQ) 21 MG/24HR patch APPLY 1 PATCH ONTO THE SKIN EVERY DAY 08/07/2019 Active Social History Tobacco Use Types Packs/Day Years Used Date Smoking Tobacco: Some Days Smokeless Tobacco: Never Alcohol Use Standard Drinks/Week Comments Yes 0 (1 standard drink = 0.6 oz pur e alcohol) occasional Comments No Sex and Gender Information Value Date Recorded Sex Assigned at Not on file Legal Sex Female 7:40 AM EDT Gender Identity Not on file Sexual Orientation Not on file Last Filed Vital Signs Vital Sign Reading Time Taken Comments Blood Pressure 136/82 10/14/2019 9:05 AM EDT Pulse 107 10/14/2019 9:05 AM EDT Temperature 36.7 C (98.1 F) 10/14/2019 9:05 AM EDT Respiratory Rate 24 10/14/2019 9:05 AM EDT Oxygen Saturation 100% 10/14/2019 9:05 AM EDT Inhaled Oxygen Concentration - - Weight 52.2 kg (115 lb) 10/14/2019 9:05 AM EDT Height 167.6 cm (5' 6 ) 10/14/2019 9:05 AM EDT Body Mass Index 18.56 10/14/2019 9:05 AM EDT Plan of Treatment Health Maintenance Due Date Last Done Comments Hepatitis C Virus Screening 1989 HIV Screening 2002 DTaP/Tdap/Td Vaccines (1 - Tdap) 2008 Hepatitis B Vaccines (1 of 3 - 19+ 3-dose series) 2008 Pap Smear (Ages 21-65) 2010 HPV Vaccines (1 - 3-dose SCD M series) 2016 Influenza Vaccine 10/10/2024 COVID-19 Vaccine (1 - 2023-2 5 season) 2024 Pneumococcal Vaccine: Pediat jimbo (0-5 Years) and At-Risk Patients (6 to 49 Years) Aged Out No longer eligible b ased on patient's age to complete this topic Insurance [facility] STATE - [facility]
--- OUTSIDE RECORDS SUMMARY | 2024-11-28 04:39 | XMS_ITS | Clinical Summary ---
Author Organization [facility] Address [address] [place] [address] Care Team Providers Care Log Driver Name Role Phone Sallie Phillips MD Primary Care Provider Surgical History Surgery Date Site/Laterality Comments TONSILLECTOMY PROCEDURE: HISTORICAL TONSILLECTOMY; COMMENT: T&A, MYRINGOTOMY TUBES OTHER SURGICAL HISTORY PROCEDURE: LAPAROSCOPY PROCEDURE NEC; COMMENT: exploratory OVARIAN CYST REMOVAL PROCEDURE: MN OVARIAN CYSTECTOMY UNI/BI COLONOSCOPY W/ BIOPSIES 2012 PROCEDURE: MN COLONOSCOPY W/BIOPSY SINGLE/MULTIPLE; COMMENT: Examination to the mid transverse colon, visually normal, random biopsies obtained: normal. Medical History Medical History Date Comments Routine infant or child heal th check DX:Routine or child health check Unspecified otitis media ,, ,, ,, DX:Unspecified otitis media Acute bronchiolitis DX:Acute bro nchiolitis Scarlet fever DX:Scarlet fever Salmonella gastroenteritis 03/13 DX:Sa lmonella gastroenteritis; COMMENT: DIARRHEA Scoliosis (and kyphoscoliosi s), idiopathic 10/13 DX:Scoliosis (and kyphoscoliosis), idiopathic Iron deficiency anemia, unspecified DX:Iron deficiency anemia, unspecified; COMMENT: MILD Dysmenorrhea DX:Dysmenorrhea Allergic rhinitis due to ani mal (cat) (dog) hair and dander DX:Allergic rhinitis due t o animal (cat) (dog) hair and dander Tobacco abuse 08/19/2009 DX:Tobacco abuse Family history of skin cancer 11/04/2009 DX :Family history of skin cancer Bipolar disorder (CMS/HCC V2 4, CMS/HCC V28) 03/12/2010 DX:Bipolar disorder (HCC); COMMENT: BPD PID (pelvic inflammatory disease) DX:PID (pelvic inflammatory disease) IBS (irritable bowel syndrome) 10/08/2012 D X:IBS (irritable bowel syndrome); COMMENT: Alternating diarrhea/constipation, onset late 2011. Family History Medical History Relation Name Comments Other: JODM Aunt DAD'S SISTER Diabetes Maternal Grandfather Other: HEART Maternal Grandfather Relation Name Status Comments Aunt Father Alive 1960 Maternal Grandfather Mother Alive 1960-[address] REMOVED AT PT'S DELIVERY Sister Alive Social History Tobacco Use Types Packs/Day Years Used Date Smoking Tobacco: Never Assessed Cigarettes 1 17.7 Started: 03/12/2007 Alcohol Use Standard Drinks/Week Comments No 0 (1 standard drink = 0.6 oz pur e alcohol) Comments Unknown Sex and Gender Information Value Date Recorded Sex Assigned at Not on file Legal Sex Female 4:52 PM EST Gender Identity Not on file Sexual Orientation Not on file Obstetrics History Plan of Treatment Health Maintenance Due Date Last Done Comments Cervical Cancer Screening: Pap Smear 2010 HIV Screening 02/08/2022 Hepatitis C Screening 02/08/2022 Social Influencers of Health Screening 02/08/2022 Depression Screening 03/12/2024 COVID-19 Vaccine ( season) 2024 Influenza Vaccine (#1) 2024 DTaP,Tdap,and Td Vaccines (9 - Td or Tdap) 07/15/2031 07/14/2021, 04/04/2016, 11/10/2000, Additional history exists HIB Vaccines Completed 10/11/1990, 04/1990, 04/23/1990, Additional history exists IPV Vaccines Completed 07/10/1994, 07/1990, 10/11/1990, Additional history exists MMR Vaccines Completed 07/10/1994, 10/11/1990 Varicella Vaccines Aged Out 07/16/1995 No longer eligible based on patient's age to complete this topic Hepatitis B Vaccines Completed 07/15/2001, 01/22/20 HPV Vaccines Aged Out No longer eligi ble based on patient's age to complete this topic Hepatitis A Vaccines Aged Out No long er eligible based on patient's age to complete this topic Meningococcal ACWY Vaccine Aged Out N o longer eligible based on patient's age to complete this topic Meningococcal B Vaccine Aged Out No l onger eligible based on patient's age to complete this topic Pneumococcal Vaccine: Pediatrics (0 to 5 Years) and At-Risk Patients (6 to 49 Years) Aged Out No longer eligible based on patient's age to complete this topic RSV Immunization Patients Under 20 months Aged Out No longer eligible based on patient's age to complete this topic Care Teams Log Driver Relationship Specialty Start Date End Date Sallie Phillips MD PCP - General 02/10/1996
[2024-11-28 04:46] VITALS: BP 137/90; PULSE 91; RESP 18; TEMP 36.6; O2SAT 96
== END 2024-11-28 04:47 | disposition home or self-care (01) ==
PROVIDERS: Emergency Provider Student in an Organized Health Care Education/Training Program; PCP Dentist General Practice
DX: Z02.83 Encounter for blood-alcohol and blood-drug test (principal)
CPT/HCPCS: 36415; 80053; 81001; 85025; 87086; 99282; 99283